=== PATIENT | male | born 1950 | race Caucasian/White ===

== ENCOUNTER → 2017-08-30 | Outpatient (CLI) | payer OTHER, MEDICARE | END | disposition home or self-care (01) | LOC: C.PATHSPEC 11:55 | PROVIDERS: ATTEND Urology | DX: R97.20 Elevated prostate specific antigen [PSA] (principal); C61 Malignant neoplasm of prostate ==

== ENCOUNTER → 2017-12-21 | Outpatient (CLI) | payer OTHER, MEDICARE ==
[~2017-12-21] MED LIST: FEXO5TAB2 PO; GABA-112 PO; IBUP-1050 PO; PANT40TA PO; SERT50TA PO; SIMV40TA2 PO
[2017-12-21 12:52] LABS: BASO % 0.1 %; BASO ABS # 0.01 K/uL (0-0.2); EOS % 2.2 %; EOS ABS # 0.17 K/uL (0-0.5); HEMATOCRIT 47.4 % (42-52); HEMOGLOBIN 15.8 g/dL (14.0-18.0); IG# 0.01 K/uL (0.00-0.02); LYMPH % 25.9 %; LYMPH ABS # 1.96 K/uL (1.2-3.4); MEAN CELL VOLUME 90.1 fL (80-100); MEAN CORPUSCULAR HGB CONC 33.3 g/dl (32-36); MEAN PLATELET VOLUME 9.7 fL (7.4-10.4); MONO % 11.9 %; NEUT % 59.8 %; NEUT ABS # 4.51 K/uL (1.4-6.5); PLATELET COUNT 198 K/uL (130-400); RED CELL DISTRIBUTION WIDTH SD 45.3 fL (36.4-46.3); WHITE BLOOD COUNT 7.56 K/uL (4.8-10.8)
[2017-12-21 13:20] LABS: BLOOD UREA NITROGEN 13 mg/dl (7-18); CALCIUM 9.4 mg/dl (8.5-10.1); CARBON DIOXIDE 30 mmol/L (21-32); CREATININE 0.84 mg/dl (0.60-1.40); GLUCOSE 89 mg/dl (70-99); POTASSIUM 4.4 mmol/L (3.5-5.1); SODIUM 139 mmol/L (136-145)
== END | disposition home or self-care (01) ==
LOC: C.LAB 10:52
PROVIDERS: ATTEND Urology
DX: C61 Malignant neoplasm of prostate (principal); R97.20 Elevated prostate specific antigen [PSA]

== ENCOUNTER 2018-01-03 05:09 | Inpatient (IN) | payer OTHER, MEDICARE ==
[2017-11-19 10:27] VITALS: BMI 32.0
[2017-11-19 10:45] VITALS: BMI 32.0
--- NOTE | 2017-11-19 11:05 | PAT Medication Instructions ---
Service Date Nov 19, 2017. Current Home Medication List Fexofenadine-Pseudoephedrine (Amy-D 12 Hour Allergy), 1 TAB PO PRN Gabapentin (Neurontin), 100 MG PO BID Ibuprofen (Advil), 400 MG PO PRN Pantoprazole (Protonix), 40 MG PO QAM Sertraline (Zoloft), 50 MG PO QAM Simvastatin (Zocor), 40 MG PO QPM Medication Instructions For Your Scheduled Surgery - Hold the following medications 7 days prior to surgery per your surgeon's instructions: Ibuprofen (Advil), 400 MG PO PRN - Hold the following medications the morning of surgery: Fexofenadine-Pseudoephedrine (Amy-D 12 Hour Allergy), 1 TAB PO PRN - Take the following medications the morning of surgery with a sip of water: Gabapentin (Neurontin), 100 MG PO BID Pantoprazole (Protonix), 40 MG PO QAM Sertraline (Zoloft), 50 MG PO QAM - Take the following medications as scheduled the night before surgery: Fexofenadine-Pseudoephedrine (Amy-D 12 Hour Allergy), 1 TAB PO PRN (if needed) Gabapentin (Neurontin), 100 MG PO BID Simvastatin (Zocor), 40 MG PO QPM If you have any questions please call us at [phone] or [phone] or [phone]
--- NOTE | 2017-11-19 11:54 | DIAGNOSTIC IMAGING REPORT ---
CHEST 2 VIEWS ROUTINE HISTORY: 67 years-old Male pat preoperative exam. No acute chest complaints COMPARISON: None available TECHNIQUE: PA and lateral views of the chest FINDINGS: Cardiac silhouette is mildly enlarged. No pneumothorax, pleural effusion or overt pulmonary edema. There is mild right hemidiaphragmatic elevation with subsegmental right basilar opacities. Mild pleural thickening along the right mid hemithorax laterally. Surgical clips of the upper abdomen are noted suggesting prior cholecystectomy. Bones of the chest appear grossly intact. IMPRESSION: 1. Cardiomegaly without overt pulmonary edema. 2. Mild right hemidiaphragmatic elevation with subsegmental right basilar opacities suggesting atelectasis. The above report was generated using voice recognition software. It may contain grammatical, syntax or spelling errors. Electronically signed by: Javan Magdaleno M.D. 11/19/2017 11:53 AM Dictated Date/Time: 11/19/2017 11:51 AM
[2017-11-19 12:14] LABS: BASO % 0.3 %; BASO ABS # 0.02 K/uL (0-0.2); EOS % 4.5 %; EOS ABS # 0.27 K/uL (0-0.5); HEMATOCRIT 44.9 % (42-52); IG# 0.01 K/uL (0.00-0.02); LYMPH % 23.7 %; LYMPH ABS # 1.42 K/uL (1.2-3.4); MEAN CELL VOLUME 88.9 fL (80-100); MEAN CORPUSCULAR HEMOGLOBIN 29.7 pg (25-34); MEAN CORPUSCULAR HGB CONC 33.4 g/dl (32-36); MEAN PLATELET VOLUME 9.7 fL (7.4-10.4); MONO % 7.8 %; MONO ABS # 0.47 K/uL (0.11-0.59); NEUT % 63.5 %; NEUT ABS # 3.81 K/uL (1.4-6.5); PLATELET COUNT 163 K/uL (130-400); RED CELL DISTRIBUTION WIDTH CV 13.6 % (11.5-14.5); RED CELL DISTRIBUTION WIDTH SD 44.2 fL (36.4-46.3)
[2017-11-19 12:21] LABS: CALCIUM 9.1 mg/dl (8.5-10.1); CREATININE 0.73 mg/dl (0.60-1.40); POTASSIUM 4.3 mmol/L (3.5-5.1)
[2018-01-03] VITALS (7 sets, daily range): BP systolic 114–152; BP diastolic 71–81; PULSE 72–95; TEMP 36.4–36.8; O2SAT 90–95; Ht 188 cm; Wt 114.5 kg
[~2018-01-03] VITALS: Ht 188 cm; Wt 114.5 kg
[~2018-01-03 05:09] MED LIST changes: +ACETAMINOPHEN 1000 MG/100 ML IV IV SCH; +CEFOXITIN IV 2,000 MG in DEXTROSE 5% 50ML 50 ML IV SCH; +HEPARIN SOD 5000 UNIT/0.5 ML CARP SQ SCH; +LACTATED RINGER'S 1000ML 1,000 ML IV SCH
[2018-01-03] MEDS ORDERED: ACETAMINOPHEN 1000 MG/100 ML IV IV SCH (06:00)
[2018-01-03] MEDS ORDERED: CEFOXITIN IV 2,000 MG in DEXTROSE 5% 50ML 50 ML IV SCH (06:00)
[2018-01-03] MEDS ORDERED: LACTATED RINGER'S 1000ML 1,000 ML IV SCH (06:00)
[2018-01-03] MEDS ORDERED: HEPARIN SOD 5000 UNIT/0.5 ML CARP SQ SCH (06:00)
[2018-01-03] MEDS ORDERED: FENTANYL CITRATE INJ 50 MCG/1 ML 2 ML VIAL ONE ×2 (06:39→11:37)
[2018-01-03] MEDS ORDERED: MIDAZOLAM HCL 1 MG/ML 2ML VIAL ONE (06:39)
--- NOTE | 2018-01-03 07:18 | History & Physical Bridge Note ---
H&P Re-Evaluation Bridge Note: I have examined the patient, reviewed the History & Physical and in the interval since the performance of the History & Physical I have noted the following changes of clinical significance: No changes noted
[2018-01-03] MEDS ORDERED: BUPIVACAINE 0.5 % 5 MG/1 ML MPF 30ML VIAL ONE (07:23)
[2018-01-03] MEDS ORDERED: METHYLENE BLUE 0.5% 10 ML VIAL ONE (07:23)
[2018-01-03] MEDS ORDERED: ATROPINE SULFATE 0.1 MG/ML 5ML SYR IV PRN (08:00)
[2018-01-03] MEDS ORDERED: PROMETHAZINE HCL INJ 6.25 MG in SODIUM CHLORIDE 0.9% 50ML 50 ML IV PRN (08:00)
[2018-01-03] MEDS ORDERED: EpHEDrine SULFATE INJ 50 MG/ML AMP IV PRN (08:00)
[2018-01-03] MEDS ORDERED: HYDROmorphone INJ 2 MG/ML SYR/VIAL ONE (08:00)
[2018-01-03] MEDS ORDERED: ONDANSETRON INJ 2 MG/ML 2 ML VIAL IV PRN ×2 (08:00→13:00)
[2018-01-03] MEDS ORDERED: PROPOFOL IV EMULSION 10 MG/ML 20 ML VIAL IV ONE (08:25)
[2018-01-03] MEDS ORDERED: ONDANSETRON INJ 2 MG/ML 2 ML VIAL ONE (08:25)
[2018-01-03] MEDS ORDERED: GLYCOPYRROLATE INJ 0.2 MG/ML VIAL ONE (08:25)
[2018-01-03] MEDS ORDERED: DEXAMETHASONE SOD INJ 4 MG/ML VIAL ONE (08:25)
[2018-01-03] MEDS ORDERED: ROCURONIUM BROMIDE 10 MG/ML 5 ML VIAL IV ONE (08:25)
[2018-01-03] MEDS ORDERED: LIDOCAINE HCL 2% 2 ML VIAL (20MG/ML) ONE (08:25)
[2018-01-03] MEDS ORDERED: NEOSTIGMINE METHYLSULFATE 5 MG/5 ML SYR ONE (08:25)
[2018-01-03] MEDS ORDERED: EpHEDrine SULFATE 50MG/5ML SYR ONE (08:25)
[2018-01-03] MEDS ORDERED: PHENYLEPHRINE 100MCG/ML 5ML SYR ONE (08:25)
--- NOTE | 2018-01-03 12:48 | [facility] Post Operative Brief Note ---
Immediate Operative Summary Operative Date Jan 03, 2018. Pre-Operative Diagnosis Neoplasm of Prostate; Elevated PSA Post-Operative Diagnosis Neoplasm of Prostate; Elevated PSA Procedure(s) Performed Laparoscopic Robot Assisted Prostatectomy Surgeon Dr. Fisher Educational Therapist Surgeon(s) Sydni BATISTA Estimated Blood Loss 350ml Findings Consistent with Post-Op Diagnosis Specimens Permanent Specimen A: Prostate and Seminal Vesicles Drains 19 Fr Flat AURA. 18 Fr Bess Anesthesia Type General Complication(s) none Disposition Disposition: Recovery Room / PACU
[2018-01-03] MEDS ORDERED: FEXOFENADINE 60MG/PSEUDOEPHEDRINE 120MG TAB PO PRN (13:00)
[2018-01-03] MEDS ORDERED: HYDROmorphone INJ 2 MG/ML SYR/VIAL IV PRN (13:00)
[2018-01-03] MEDS ORDERED: BELLADONNA/OPIUM SUPP 60 MG SUPP PR ONE (13:07)
[2018-01-03] MEDS ORDERED: BELLADONNA/OPIUM SUPP 60 MG SUPP PR PRN (13:15)
[2018-01-03] MEDS: FENTANYL CITRATE INJ 50 MCG/1 ML 2 ML VIAL IV PRN ×4 (13:24→13:55)
[2018-01-03] MEDS: HYDROmorphone INJ 1 MG/ML SYR IV PRN ×4 (14:04→14:20)
--- NOTE | 2018-01-03 14:13 | [facility] Operative Report ---
Operative Report Operative Date Jan 03, 2018. Pre-Operative Diagnosis Prostate Cancer, Tereso 3+3 Post-Operative Diagnosis Same Procedure(s) Performed Robotic Asst Laparoscopic Prostatectomy with lysis of adhesions Surgeon Phillip Kitchen Work Supervisor Surgeon(s) LYNNE Garcia Estimated Blood Loss 350cc Findings Significant adhesions to inguinal mesh. No obvious prostatic defects. Specimens 1. Prostate, Radical Drains 18 Fr Cid, 19 Fr Kel AURA Anesthesia Type General Complication(s) none Disposition Recovery Room / PACU Indications Low Risk 3+3 Prostate Cancer in 3/16 Cores with PSA between 4-6. Risks and benefits discussed at length. Description of Procedure The patient was brought to the operative suite and placed under general endotracheal intubation anesthesia in the supine position. The patient was transferred to the dorsal lithotomy position. At this point, the patient prepped and draped in the usual sterile fashion and a timeout was completed. Preoperative antibiotics of Ancef 2 grams had been given. FRED's and SCD's were placed on the patient's lower extremities. A catheter was placed using sterile technique. With the time out completed the patient was placed into Trendelenburg and the skin at the umbilicus was anesthetized. A small incision was made superior to the umbilicus. A cut down technique was used due to previous surgery and mesh placement at umbilicus. The peritoneum was entered. A camera port was placed. The cavity was insufflated to 12mmHG. A Camera, laparoscopic, was placed and the abdominal cavity inspected. No concerning features were noted. At this point, the skin was marked for port placement and 8mm working ports were placed. The skin was anesthetized down to fascia and an approx 1cm incision was made to place the 3 x 8mm ports. A 10mm and 5 mm assistant hvac mechanic ports were also placed in similar fashion under direct visualization. The patient was transferred into steep Trendelenburg position and the legs lowered. The robot was positioned and docked. The camera was placed and all trocars were positioned under direct visualization. Sydni Michael was intergral in port placement, camera utilization, and docking procedure. She remained in sterile attire and then proceeded to assist the remainder of the case. Dr. Abdiel Schafer was readily available for assistance during amezquita portions of the proceeding procedure. At this point, I transitioned to the robotic console. At this point, the sigmoid colon was mobilized superiorly and the pelvis assessed. Adhesions were freed to allow mobilization. Significant adhesions were noted from the colon and small bowel to the mesh piece at the inguinal canal. The peritoneum in the midline was opened between rectum and bladder and the seminal vesicles exposed. These were dissected with blunt technique. The vas was clipped and cut and mobilized. Cautery was used to assist dissection avoiding the tissue posteriorly near the rectum. The lateral vesicles were cliped with a hemolock and all bleeding controlled. This was taken as inferior as possible from this position. The medial umbilical ligaments were then identified and the peritoneum directly lateral on the right followed by the left was opened. The tissues were bluntly dissected to free the bladder's lateral attachments. This was taken down to the pubic bone and exposed the endopelvic fascia bilaterally. The medial ligaments were cut and the bladder dropped. The tissues was dissected anterior to the prostate. During dissection of the right, it was noted that perivesicular fat was grossly adhered to the mesh piece in the right inguinal region. Careful dissection was required to fully free these adhesions. A significant portion of time and care was needed to lyse and free the adhesions. It also limited mobility of the right robotic arm once operating deeper into the pelvis. The endopelvic fascia on each side was then opened and the lateral edges of the prostate dissected. The Dorsal venous complex of the prostate was dissected and assessed. A 2-0 suture was used to ligate the vessels. A suspension stitch was used and clipped. Electrocautery was used to cut the anterior attachments, the puboprostatic ligaments, and venous tissues. The cid was manipulated to better visual the bladder neck and dissection was taken using electrocautery. The bladder neck was opened and dissected from the prostate. The UO were identifed and dissection taken in a direction to avoid each side. The vas stump and seminal vesicles were exposed and used to assist in traction to dissect. The prostatic pedicles were better exposed. The posterior prostate was dissected. An attempt was made to limit cautery and utilize cold dissection of the lateral posterior prostate to attempt preservation of the neurovascular bundle bilaterally. Hemolock clips were utilized to clip the prostatic pedicle bilaterally. The dissection was taken to the apex of the prostate. The anterior prostate was released and the urethra exposed. Cold cutting was used to open the anterior portion and expose the catheter. This was removed and the urethra incised. The prostate was further freed and grasped and removed from the field. The entire dissection bed was inspected.Hemostatic agent was placed in the region. No areas of injury or bleeding was noted. Care was taken to examine the perirectal tissues. A probe was placed and no injuries or other issues were observed. The bladder neck and urethra were then approximated with a running barbed suture starting at the 5 o'clock position and moving to the 12 o'clock on each side. This was tied at the anterior portion. A leak test was completed. Leak was noted from the left side. On inspection, the urethra at the 10 o'clock postion had a small tear. This was freed. A Barbed suture was selected and the anastomosis on the left was reconfigured and sutured. This was then leak tested again without any evidence of issues. The entire dissection space was inspected one final time. No bleeding or injuries or areas of concern were noted. No tumor or other concerning features were noted. In the left inferior port, a 19Fr Flat drain was placed. This was secured and positioned into the pelvis without issues. At this point, the robot was undocked and moved away from the patient. The patient was taken out of Trendelenberg. The port sites were all assessed laparoscopically. The endoscopic bag was moved into the midline port. The 10mm port site was closed with the Cipriano Ortega device. The other ports were assessed and no issues observed. The umbilical incision was opened further exposing fascia which was then opened in order to removed the prostate in the bag. The prostate was removed. A running PDS suture was used to close fascia. The skin at each site was closed with a running Monocryl suture. The area was cleaned and glue placed on each incision. The patient was cleaned and bandaged. The patient had tolerated the procedure well without any complications. Patient did require extensive lysis of adhesion to bilateral inguinal mesh. This considerable increased operative time. No other issues or concerns were noted. The patient was cleaned, aroused from anesthesia, and transferred to the PACU in stable condition having tolerated the procedure without issues. The patient will be monitored closely before being transferred to the floor for close monitoring the in the post operative period. I attest to the content of the Intraoperative Record and any orders documented therein. Any exceptions are noted below.
--- NOTE | 2018-01-03 14:38 | Anesthesiology Progress Note ---
Anesthesia Post Op Note Date & Time Jan 03, 2018 at 14:38 Vital Signs Pain Intensity: 5 Vital Signs Past 12 Hours Date Time Temp Pulse Resp B/P (MAP) Pulse Ox O2 Delivery O2 Flow Rate FiO2 01/03/18 14:35 36.4 81 16 125/73 93 Nasal Cannula 3 01/03/18 14:25 86 13 133/78 94 Nasal Cannula 3 01/03/18 14:15 84 12 145/71 95 Nasal Cannula 3 01/03/18 14:05 83 11 128/74 95 Nasal Cannula 3 01/03/18 13:55 82 12 121/82 95 Nasal Cannula 3 01/03/18 13:45 75 15 135/72 93 Nasal Cannula 3 01/03/18 13:35 74 13 130/70 98 Oxymask 10 01/03/18 13:25 72 16 132/76 93 Oxymask 10 01/03/18 13:15 66 14 144/83 96 Oxymask 10 01/03/18 13:05 70 17 155/85 99 Oxymask 10 01/03/18 12:55 36.2 73 13 141/71 96 Oxymask 10 01/03/18 05:50 36.5 72 20 129/81 95 Room Air Notes Mental Status: alert / awake / arousable, participated in evaluation Pt Amnestic to Procedure: Yes Nausea / Vomiting: adequately controlled Pain: adequately controlled Airway Patency, RR, SpO2: stable & adequate BP & HR: stable & adequate Hydration State: stable & adequate Anesthetic Complications: no major complications apparent
[2018-01-03 15:27] LABS: HEMOGLOBIN 14.6 g/dL (14.0-18.0); MEAN CORPUSCULAR HEMOGLOBIN 29.9 pg (25-34); MEAN PLATELET VOLUME 9.6 fL (7.4-10.4); PLATELET COUNT 145 K/uL (130-400); RED CELL DISTRIBUTION WIDTH SD 45.7 fL (36.4-46.3); WHITE BLOOD COUNT 10.76 K/uL (4.8-10.8)
[2018-01-03 15:28] LABS: MEAN CORPUSCULAR HGB CONC 33.2 g/dl (32-36)
[2018-01-03] MEDS: ACETAMINOPHEN 500 MG TAB PO SCH ×2 (15:38→21:48)
[2018-01-03] MEDS: CEFAZOLIN IV 3,000 MG in SYRINGE 0 ML IV SCH ×2 (15:38→23:13)
[2018-01-03 15:49] LABS: CALCIUM 8.4 mg/dl (8.5-10.1); POTASSIUM 4.5 mmol/L (3.5-5.1)
[2018-01-03] MEDS: OXYCODONE/ACETAMINOPHEN 7.5-325 TAB PO PRN ×2 (16:37→23:13)
[2018-01-03] MEDS: LACTATED RINGER'S 1000ML 1,000 ML IV SCH (18:50)
[2018-01-03] MEDS: KETOROLAC TROMETHAMINE 15 MG/ML VIAL IV PRN (18:56)
[2018-01-03] MEDS: HEPARIN SOD 5000 UNIT/0.5 ML CARP SQ SCH (19:00)
[2018-01-03] MEDS: OXYBUTYNIN CHLORIDE 5 MG TAB PO PRN (19:22)
[2018-01-03] MEDS ORDERED: PNEUMOCOCCAL ADMINISTRATION CHARGE ONE (21:00)
[2018-01-03] MEDS ORDERED: SIMVASTATIN 40 MG TAB PO SCH (21:00)
[2018-01-03] MEDS ORDERED: PNEUMOCOCCAL POLYSACCHARIDES 25 MCG/0.5 ML VIAL/SYR IM. ONE (21:00)
[2018-01-03] MEDS: DOCUSATE SODIUM 100 MG CAP PO SCH (21:49)
[2018-01-03] MEDS: GABAPENTIN 100 MG CAP PO SCH (21:50)
[2018-01-03] MEDS ORDERED: NURSING VERBAL MED ORDER ONE (22:00)
[2018-01-04] MEDS: LACTATED RINGER'S 1000ML 1,000 ML IV SCH ×2 (02:28→11:27)
[2018-01-04] MEDS: KETOROLAC TROMETHAMINE 15 MG/ML VIAL IV PRN (02:31)
[2018-01-04] MEDS: ACETAMINOPHEN 500 MG TAB PO SCH ×2 (03:08→08:58)
[2018-01-04 03:33] VITALS: BP 114/73; PULSE 68; TEMP 36.4; O2SAT 94
[2018-01-04] MEDS: OXYBUTYNIN CHLORIDE 5 MG TAB PO PRN (05:28)
[2018-01-04] MEDS: OXYCODONE/ACETAMINOPHEN 7.5-325 TAB PO PRN ×3 (05:28→14:51)
[2018-01-04] MEDS: HEPARIN SOD 5000 UNIT/0.5 ML CARP SQ SCH (06:21)
--- NOTE | 2018-01-04 06:45 | Clinical Documentation Query ---
JHON Gallardo : CLINICAL DOCUMENTATION QUERY Patient is a 67 year old male who on 01/03 underwent laparoscopic robot assisted prostatectomy for prostate neoplasm. As appropriate, please explicitly specify whether this neoplasm is suspected to be a malignant primary or malignant secondary disease process as this cannot be assumed by the professional pulverizing and sifting operator. Thank you. In your clinical opinion is this patient being managed for: ( X ) Malignant primary neoplasm of prostate ( ) Malignant secondary neoplasm of prostate ( ) Not Agree ( ) Other explanation of clinical findings (Please Explain) ( ) Unable to determine (Please Define) ( ) Need to Discuss The medical record reflects the following clinical findings, treatment, and risk factors. Clinical Indicators: As above Treatment: Laparoscopic robot assisted prostatectomy for prostate neoplasm Risk Factors: Age, gender Please clarify and document your clinical opinion in the progress notes and discharge summary. Terms such as "probable", "suspected", "likely", "questionable", "possible", or "still to be ruled out" are acceptable. IF IN AGREEMENT, YOU MUST DOCUMENT ABOVE DIAGNOSTIC STATEMENT IN DAILY PROGRESS NOTES AND DISCHARGE SUMMARY. This document is not part of the patient's record. Thank You, Lei Duque, WICHO [phone]
[2018-01-04 07:21] LABS: EOS % 0.6 %; EOS ABS # 0.05 K/uL (0-0.5); HEMATOCRIT 39.8 % (42-52); HEMOGLOBIN 12.7 g/dL (14.0-18.0); IG# 0.01 K/uL (0.00-0.02); LYMPH % 14.1 %; LYMPH ABS # 1.18 K/uL (1.2-3.4); MEAN CELL VOLUME 90.5 fL (80-100); MEAN CORPUSCULAR HEMOGLOBIN 28.9 pg (25-34); MEAN CORPUSCULAR HGB CONC 31.9 g/dl (32-36); MEAN PLATELET VOLUME 9.6 fL (7.4-10.4); MONO % 12.2 %; MONO ABS # 1.02 K/uL (0.11-0.59); NEUT ABS # 6.08 K/uL (1.4-6.5); PLATELET COUNT 155 K/uL (130-400); RED CELL DISTRIBUTION WIDTH CV 14.2 % (11.5-14.5); RED CELL DISTRIBUTION WIDTH SD 47.6 fL (36.4-46.3); WHITE BLOOD COUNT 8.34 K/uL (4.8-10.8)
[2018-01-04 07:46] VITALS: O2SAT 88
--- NOTE | 2018-01-04 07:46 | Progress Note ---
Subjective Date of Service: Jan 04, 2018. Subjective Pt evaluation today including: conversation w/ patient, chart review, lab review Voiding: cid catheter in place (patent, draining chelsey colored urine with some old clot ) 67 yo male s/p RALRP. Pt reports some lower abdominal pain/cramping yesterday. Improved after " passing air bubbles" on the toilet. Reports some belching and flatus. Denies BM. Denies n/v. H&H stable. I&Os acceptable. Review of Systems Constitutional: No fever, No chills Respiratory: No shortness of breath Cardiac: No chest pain Abdomen: No pain, No nausea, No vomiting Male : No hematuria Heme: No abnormal bleeding/bruising Objective Vital Signs Date Time Temp Pulse Resp B/P (MAP) Pulse Ox O2 Delivery O2 Flow Rate FiO2 01/04/18 03:33 36.4 68 16 114/73 (87) 94 Nasal Cannula 3.0 01/03/18 23:15 Nasal Cannula 3.0 01/03/18 22:58 36.7 76 20 123/75 (91) 93 Nasal Cannula 3.0 01/03/18 18:44 36.5 92 20 152/77 (102) 90 Nasal Cannula 3.0 01/03/18 17:02 36.5 82 18 114/71 (85) 91 Nasal Cannula 3.0 01/03/18 16:04 36.4 85 18 125/73 (90) 91 Nasal Cannula 3.0 01/03/18 15:33 36.4 95 18 114/72 (86) 91 Nasal Cannula 3.0 01/03/18 15:00 Nasal Cannula 3.0 01/03/18 15:00 36.8 90 16 120/74 (89) 93 Nasal Cannula 3.0 01/03/18 15:00 Nasal Cannula 3.0 01/03/18 14:45 82 12 116/78 93 Nasal Cannula 3 01/03/18 14:35 36.4 81 16 125/73 93 Nasal Cannula 3 01/03/18 14:25 86 13 133/78 94 Nasal Cannula 3 01/03/18 14:15 84 12 145/71 95 Nasal Cannula 3 01/03/18 14:05 83 11 128/74 95 Nasal Cannula 3 01/03/18 13:55 82 12 121/82 95 Nasal Cannula 3 01/03/18 13:45 75 15 135/72 93 Nasal Cannula 3 01/03/18 13:35 74 13 130/70 98 Oxymask 10 01/03/18 13:25 72 16 132/76 93 Oxymask 10 01/03/18 13:15 66 14 144/83 96 Oxymask 10 01/03/18 13:05 70 17 155/85 99 Oxymask 10 01/03/18 12:55 36.2 73 13 141/71 96 Oxymask 10 Physical Exam General Appearance: no apparent distress, + obese Eyes: normal inspection ENT: hearing grossly normal Neck: no JVD Respiratory/Chest: no respiratory distress, no accessory muscle use Cardiovascular: no JVD Abdomen: + pertinent finding (abdominal incisions c/d/i; AURA draining serosanguinous fluid) Extremities: normal inspection Neurologic/Psychiatric: alert, normal mood/affect, oriented x 3 Skin: normal color Laboratory Results Last 24 Hours Test 01/03/18 15:17 01/04/18 06:59 White Blood Count 10.76 K/uL 8.34 K/uL Red Blood Count 4.89 M/uL 4.40 M/uL Hemoglobin 14.6 g/dL 12.7 g/dL Hematocrit 44.0 % 39.8 % Mean Corpuscular Volume 90.0 fL 90.5 fL Mean Corpuscular Hemoglobin 29.9 pg 28.9 pg Mean Corpuscular Hemoglobin Concent 33.2 g/dl 31.9 g/dl RDW Standard Deviation 45.7 fL 47.6 fL RDW Coefficient of Variation 14.0 % 14.2 % Platelet Count 145 K/uL 155 K/uL Mean Platelet Volume 9.6 fL 9.6 fL Prothrombin Time 10.5 SECONDS Prothromb Time International Ratio 1.0 Activated Partial Thromboplast Time 24.0 SECONDS Partial Thromboplastin Ratio 0.9 Sodium Level 138 mmol/L Potassium Level 4.5 mmol/L Chloride Level 108 mmol/L Carbon Dioxide Level 27 mmol/L Anion Gap 3.0 mmol/L Blood Urea Nitrogen 15 mg/dl Creatinine 1.00 mg/dl Est Creatinine Clear Calc Drug Dose 96.5 ml/min Estimated GFR () 89.9 Estimated GFR (Non- 77.5 BUN/Creatinine Ratio 15.4 Random Glucose 156 mg/dl Calcium Level 8.4 mg/dl Neutrophils (%) (Auto) 73.0 % Lymphocytes (%) (Auto) 14.1 % Monocytes (%) (Auto) 12.2 % Eosinophils (%) (Auto) 0.6 % Basophils (%) (Auto) 0.0 % Neutrophils # (Auto) 6.08 K/uL Lymphocytes # (Auto) 1.18 K/uL Monocytes # (Auto) 1.02 K/uL Eosinophils # (Auto) 0.05 K/uL Basophils # (Auto) 0.00 K/uL Immature Granulocyte % (Auto) 0.1 % Immature Granulocyte # (Auto) 0.01 K/uL Assessment and Plan POD #1 s/p RALRP. AFVSS. Pt clinically stable. Will advance to a mechanical soft diet for breakfast. Hep lock IVF after breakfast if tolerating PO. Encourage ambulation to hallway. Encourage us of IS. Cid leg bag teaching. Possible d/c home after lunch if tolerating PO, ambulating without difficulty, and pain controlled. Discharge planning: home
[2018-01-04] MEDS ORDERED: DTR5 PO (07:48)
[2018-01-04] MEDS ORDERED: CLC100 PO (07:48)
[2018-01-04] MEDS ORDERED: OXYC7.5T62 PO (07:48)
--- NOTE | 2018-01-04 07:50 | Discharge Instructions ---
Discharge Instructions Date of Service Jan 04, 2018. Admission Reason for Admission: Prostate Cancer Discharge Discharge Diagnosis / Problem: Prostate Cancer Discharge Goals Goal(s): Decrease discomfort, Increase independence, Improve disease control, Improve nutritional status, Diagnostic testing, Therapeutic intervention Activity Recommendations Activity Limitations: as noted below Shower/Bathe: tomorrow 1. Do not lift >15lbs x 6 weeks. 2. No heavy exercise x 6 weeks. You may engage in light activity such as walking and stairs as tolerated. 3. No sexual intercourse until cleared by Dr. Fisher. 4. Do not drive x [address] while taking narcotics. 5. You may resume taking ibuprofen in 1 week. 6. Immediately call our office at [phone] if your catheter is removed for any reason. 7. Follow-up as scheduled. Please call our office at [phone] if you need to reschedule for any reason. . . Current Hospital Diet Patient's current hospital diet: Regular Diet Discharge Diet Recommended Diet: AHA Diet (Heart Healthy) Procedures Procedures Performed: Robotic Asst Laparoscopic Prostatectomy with lysis of adhesions Pending Studies Studies pending at discharge: yes List of pending studies: prostate pathology Medical Emergencies . Who to Call and When: Medical Emergencies: If at any time you feel your situation is an emergency, please call 911 immediately. . Non-Emergent Contact Non-Emergency issues call your: Urologist Call Non-Emergent contact if: temperature is above 101.5, your pain is not controlled, your pain is worsening, your pain is unusual for you, your pain is concerning you, wound has increased drainage, wound has increased redness, wound has increased pain, you have any medication questions . . "Provider Documentation" section prepared by Sydni Michael. . [place] Drug Monitoring Program Search Results: patient reviewed within database, no issues identified
[2018-01-04 07:53] VITALS: BP 112/71; PULSE 78; TEMP 36.9; O2SAT 94
[2018-01-04 07:53] LABS: CALCIUM 8.2 mg/dl (8.5-10.1); CREATININE 1.11 mg/dl (0.60-1.40)
--- NOTE | 2018-01-04 08:01 | Anesthesiology Progress Note ---
Anesthesia Post Op Note Date & Time Jan 04, 2018 at 08:00 Vital Signs Pain Intensity: 6.0 Vital Signs Past 12 Hours Date Time Temp Pulse Resp B/P (MAP) Pulse Ox O2 Delivery O2 Flow Rate FiO2 01/04/18 07:53 36.9 78 16 112/71 (85) 94 2.0 01/04/18 03:33 36.4 68 16 114/73 (87) 94 Nasal Cannula 3.0 01/03/18 23:15 Nasal Cannula 3.0 01/03/18 22:58 36.7 76 20 123/75 (91) 93 Nasal Cannula 3.0 Notes Mental Status: alert / awake / arousable, participated in evaluation Pt Amnestic to Procedure: Yes Nausea / Vomiting: adequately controlled Pain: adequately controlled Airway Patency, RR, SpO2: stable & adequate BP & HR: stable & adequate Hydration State: stable & adequate Anesthetic Complications: no major complications apparent
[2018-01-04] MEDS: DOCUSATE SODIUM 100 MG CAP PO SCH (08:57)
[2018-01-04] MEDS: GABAPENTIN 100 MG CAP PO SCH (08:57)
[2018-01-04] MEDS: CEFAZOLIN IV 3,000 MG in SYRINGE 0 ML IV SCH (08:58)
[2018-01-04] MEDS ORDERED: SERTRALINE HCL 50 MG TAB PO SCH (09:00)
[2018-01-04] MEDS ORDERED: PANTOprazole SOD 40 MG TAB PO SCH (09:00)
[2018-01-04 11:20] VITALS: BP 107/68; PULSE 89; TEMP 37; O2SAT 95
[2018-01-04 15:18] VITALS: BP 107/68; PULSE 89; TEMP 37; O2SAT 95
[2018-01-07] MEDS ORDERED: DOCU100C31 PO (17:04)
[2018-01-07] MEDS ORDERED: IBUP-1459 PO (17:08)
[2018-01-07] MEDS ORDERED: DTR/5 PO (17:10)
[2018-01-07] MEDS ORDERED: OXYC7.5T65 PO (17:12)
--- NOTE | 2018-01-08 11:08 | Discharge Summary ---
Discharge Summary Date of Service Jan 04, 2018. Admission Date/Reason Jan 03, 2018 at 07:19 Prostate Cancer. Discharge Date/Disposition Jan 04, 2018 Home Diagnosis Principal Diagnosis: Malignant Prostate Cancer, Primary Procedure(s) Performed RALP with MARYANNE Medication Reconciliation See Report Admission Physical Exam As per Admitting History & Physical. Hospital Course Patient was admitted and underwent RALP. Patient tolerated procedure well without complications. Patient did require extensive lysis of adhesions due to previous inguinal mesh. Patient was monitored post operatively. POD1 the patient was ambulating and tolerating light diet. Pain was better controlled. Medications were given for pain and bowel management. Patient was improving overall. Patient tolerated catheter in place. With the patient's improving clinical picture and plan for postoperative care at home, the patient was prepared and discharged to the care of his family. Follow up and discharge instructions per information on discharge sheet. Discharge Instructions Please refer to the electronic Patient Visit Report (Discharge Instructions) for additional information.
== END 2018-01-04 15:39 | disposition home or self-care (01) | DRG 707 ==
LOC: C.ACU 05:09 → C.MSW 07:19 → ENRESERV 14:39
PROVIDERS: ADMIT Urology; ATTEND Urology
PROC: 8E0W4CZ Robotic Assisted Procedure of Trunk Region, Percutaneous Endoscopic Approach (ICD-10-PCS; principal; 2018-01-03 07:30)
PROC: 0JN Subcutaneous Tissue and Fascia, Release (ICD-10-PCS; principal; 2018-01-03 07:30)
PROC: 0VT04ZZ Resection of Prostate, Percutaneous Endoscopic Approach (ICD-10-PCS; principal; 2018-01-03 07:30)
PROC: 0VT34ZZ Resection of Bilateral Seminal Vesicles, Percutaneous Endoscopic Approach (ICD-10-PCS; principal; 2018-01-03 07:30)
DX: C61 Malignant neoplasm of prostate (principal); N13.8 Other obstructive and reflux uropathy; K66.0 Peritoneal adhesions (postprocedural) (postinfection); N40.1 Benign prostatic hyperplasia with lower urinary tract symptoms; Z79.899 Other long term (current) drug therapy; Z87.01 Personal history of pneumonia (recurrent); Z87.09 Personal history of other diseases of the respiratory system; Z80.1 Family history of malignant neoplasm of trachea, bronchus and lung; Z84.1 Family history of disorders of kidney and ureter

== ENCOUNTER → 2018-01-25 | Outpatient (CLI) | payer OTHER, MEDICARE ==
[~2018-01-25] MED LIST changes: -ACETAMINOPHEN 1000 MG/100 ML IV IV SCH; -CEFOXITIN IV 2,000 MG in DEXTROSE 5% 50ML 50 ML IV SCH; +DOCU100C31 PO; -HEPARIN SOD 5000 UNIT/0.5 ML CARP SQ SCH; -IBUP-1050 PO; +IBUP-1459 PO; -LACTATED RINGER'S 1000ML 1,000 ML IV SCH; +[UNRECOGNIZED DRUG - CODE] PO
== END | disposition home or self-care (01) ==
LOC: C.LABSPEC 14:49
PROVIDERS: ATTEND Nurse Practitioner Family
DX: N40.1 Benign prostatic hyperplasia with lower urinary tract symptoms (principal); C61 Malignant neoplasm of prostate